=== PATIENT | male | born 2000 | race Caucasian/White ===

== ENCOUNTER 2020-10-09 12:31 | Outpatient (REF) | payer OTHER, SELFPAY | END 2020-10-09 12:32 | disposition home or self-care (01) | LOC: HO.LAB 12:31 | PROVIDERS: Visit Provider Internal Medicine | DX: Z20.828 Contact with and (suspected) exposure to other viral communicable diseases (principal) | CPT/HCPCS: C9803; U0003 ==

== ENCOUNTER 2021-10-12 12:52 | Emergency (ER) | payer OTHER, SELFPAY ==
[2021-10-12 12:56] VITALS: BP 150/90; PULSE 84; RESP 18; TEMP 36.4; O2SAT 97; BMI 25.5
[2021-10-12 13:19] LABS: IDNOW Serial# 9DD0AD1C; Strep A Nucleic Acid Negative (Negative)
[2021-10-12 15:16] LABS: Monotest Negative (Negative)
--- NOTE | 2021-10-12 15:35 | ED.URI ---
HPI - URI/Sore Throat General Chief Complaint: General Medical Stated Complaint: MOUTH ISSUES Time Seen by Provider: 10/12/21 13:38 Source: patient Mode of arrival: ambulatory Limitations: no limitations History of Present Illness MD elicited complaint: sore throat Onset (ago): day(s) (4) Consistency: constant and progressively worsening Severity: moderate Able to tolerate fluids by mouth: Yes Exacerbating factors: swallowing Relieving factors: nothing Associated symptoms: denies other symptoms Treatments prior to arrival: none Related Data Previous Rx's Medication Instructions Recorded amoxicillin 875 mg-potassium 1 tab PO BID 10 Days #20 tab 10/12/21 clavulanate 125 mg tablet (Augmentin) Allergies Allergy/AdvReac Type Severity Reaction Status Date / Time No Known Allergies Allergy Verified 10/12/21 14:03 Review of Systems Review of Systems: Yes all other systems are reviewed and are negative REPLACED BY [facility] Social History Social History Advance Directives: No Advance Directives Information Provided: No Physical Exam Vital Signs: Vital Signs: Last Vital Signs Temp 97.5 F 10/12/21 12:56 Pulse 84 10/12/21 12:56 Resp 18 10/12/21 12:56 BP 150/90 H 10/12/21 12:56 Pulse Ox 97 10/12/21 12:56 BMI result Body Mass Index 25.5 MDM - URI/Sore Throat Lab Data Labs: Lab Results 10/12/21 10/12/21 10/12/21 Range/Units 13:00 14:24 14:24 Monoscreen Negative (Negative) S. pyogenes GrpA THOMAS Negative Cancelled (Negative) Discharge Plan Discharge Clinical Impression: Acute bacterial pharyngitis Patient Disposition: Home, Self-Care Instructions: Pharyngitis (ED) Prescriptions: New amoxicillin-pot clavulanate [Augmentin] 875-125 mg tablet 1 tab PO BID 10 Days Qty: 20 RF: 0 Referrals: Physician,None [Primary Care Provider] - 2 days (your pcp) Stand Alone Forms: Work/School Release Print Language: [place]i
== END 2021-10-12 15:42 | disposition home or self-care (01) ==
PROVIDERS: Physician Assistant Medical; Emergency Provider Emergency Medicine
DX: J02.9 Acute pharyngitis, unspecified (principal); Z20.822 Contact with and (suspected) exposure to COVID-19; Z79.899 Other long term (current) drug therapy
CPT/HCPCS: 36415; 86308; 87651; 99283